=== PATIENT | male | born 1985 | race Asian ===

== ENCOUNTER 2018-12-15 23:34 | Emergency (ER) | payer BC ==
[~2018-12-15] VITALS: Ht 165.1 cm; Wt 63.5 kg
--- NOTE | 2018-12-16 00:19 | PHYS DOC ---
Past Medical History Past Medical History: No Pertinent History Past Surgical History: No Surgical History Alcohol Use: Occasionally Additional Information: PT. STATES HE DRINKS 2X A WEEK Drug Use: None Adult General Chief Complaint Chief Complaint: ALCOHOL INTOXICATION HPI HPI Patient is a 33 year old male who presents with head and left rib pain status post fall. Patient was drinking alcohol since 2:00 this afternoon and fell backwards and walking up the stairs this evening. He hit his head and left chest wall on the concrete denies any loss of consciousness. Currently experiencing left rib, left, and left posterior occipital pain. His experiencing some blurry vision of his left eye well as some dizziness. Denies any nausea, vomiting, lightheadedness, shortness of breath.[] Review of Systems Review of Systems Constitutional: Denies fever or chills [] Eyes: Reports left blurry vision, left eye pain.[] HENT: Denies nasal congestion or sore throat, reports left occipital pain [] Respiratory: Denies cough or shortness of breath [] Cardiovascular: Denies chest pain or palpitations[] GI: Denies abdominal pain, nausea, vomiting.[] : Denies dysuria or hematuria [] Musculoskeletal: Reports left-sided chest wall pain. Denies joint pain[] Integument: Denies rash or skin lesions [] Neurologic: Reports headache, no focal weakness or sensory changes [] Complete systems were reviewed and found to be within normal limits, except as documented in this note. Current Medications Current Medications Current Medications Medications (Trade) Dose Ordered Sig/Kesha Start Time Stop Time Status Last Admin Dose Admin Diphtheria/ Tetanus/Acell Pertussis (Boostrix) 0.5 ml ONCE ONCE 12/16/18 00:30 12/16/18 00:31 DC 12/16/18 00:21 0.5 ML Fluorescein Sodium (Ful-Delfina) 1 strip 1X ONCE 12/16/18 02:00 12/16/18 02:01 DC 12/16/18 01:45 1 STRIP Lidocaine/ Epinephrine (LIDOCAINE 2%-EPI 1:100,000 multi-dose) 20 ml 1X ONCE 12/16/18 00:30 12/16/18 00:31 DC 12/16/18 00:22 20 ML Neomycin/ Polymyxin/ Bacitracin (Triple Antibiotic Ointment) 1 pkt 1X ONCE 12/16/18 00:30 12/16/18 00:31 DC 12/16/18 00:22 1 PKT Tetracaine HCl (Tetracaine) 1 drop 1X ONCE 12/16/18 02:00 12/16/18 02:01 DC 12/16/18 01:45 1 DROP Allergies Allergies Allergies Coded Allergies Type Severity Reaction Last Updated Verified No Known Drug Allergies 12/15/18 No Physical Exam Physical Exam Constitutional: Well developed, well nourished, intoxicated. [] HENT: Normocephalic, 4 cm lack on left occipital region, TMs normal bilateral. [ ] Eyes: PERRLA, EOMI, injected left conjunctiva[] Neck: Normal range of motion, no tenderness, supple, no stridor. [] Cardiovascular:Heart rate regular rhythm, no murmur [] Lungs & Thorax: Bilateral breath sounds clear to auscultation, left chest wall pain with palpation [] Abdomen: Bowel sounds normal, soft, no tenderness, no rebound, rigidity or guarding. [] Skin: Warm, dry, no erythema, no rash. [] Back: No tenderness, no CVA tenderness. [] Extremities: No tenderness, no cyanosis, no clubbing, ROM intact, no edema. [] Neurologic: Alert and oriented X 3, no focal deficits noted. [] Psychologic: Affect normal, mood normal. [] Current Patient Data Vital Signs Vital Signs Date Time Temp Pulse Resp B/P (MAP) Pulse Ox O2 Delivery O2 Flow Rate FiO2 12/16/18 02:00 81 21 106/59 (75) 98 Room Air 12/15/18 23:43 98.4 98.4 EKG EKG [] Radiology/Procedures Radiology/Procedures PROCEDURE: CT HEAD AND CERVICAL SPINE WO CT Head W/O Contrast: History: etoh; pain to head/neck Comparison: none Axial images were obtained without contrast. The nunes and white matter appears normal and symmetrical for the patients age. There is no mass effect, extraaxial fluid collections or hydrocephalus. There is no gross bleed. There is no focal loss of nunes-white matter distinction to suggest acute ischemia, i.e. stroke. There is opacification of the frontal sinus and the ethmoid air cells and fluid and mucoperiosteal thickening in the right maxillary sinus and mildly depressed thickening inferiorly in the left maxillary sinus. There is some compressive thickening in the sphenoid sinus. Impression: Moderate pansinusitis. No acute intracranial findings. End impression CT C-Spine without contrast: Clinical History: etoh; pain to head/neck Technique: Axial helical images of the cervical spine were obtained without contrast, axial coronal and sagittal reconstruction was performed. Findings: There is no loss of vertebral body stature. There is no prevertebral soft tissue swelling. The vertebral bodies are well aligned. The C1-C2 relationship is normal. The visualized osseous structures appear normal. Impression: No acute findings. Clinical correlation suggested. PQRS Compliance Statement: One or more of the following individualized dose reduction techniques were utilized for this examination: 1. Automated exposure control 2. Adjustment of the mA and/or kV according to patient size 3. Use of iterative reconstruction technique Electronically signed by: Jorje López III, MD (12/16/2018 12:46 AM) [id number] PROCEDURE: CT CHEST WO CONTRAST CT of the chest without contrast: Clinical History: Ethanol pain anterior ribs on left status post fall. Axial helical images of the chest were obtained without contrast. There are few pulmonary nodules bilaterally largest on the right measures 6 mm. There is no mediastinal or hilar lymphadenopathy. Impression: Noncalcified pulmonary nodules. Recommend a 6-month-old CT chest without contrast. PQRS Compliance Statement: One or more of the following individualized dose reduction techniques were utilized for this examination: 1. Automated exposure control 2. Adjustment of the mA and/or kV according to patient size 3. Use of iterative reconstruction technique Electronically signed by: Jorje López III, MD (12/16/2018 12:54 AM) [facility] [place][] Course & Med Decision Making Course & Med Decision Making 33-year-old male presents to the ER status post fall. Patient was drinking this afternoon and fell down six steps and hit his head and chest wall on concrete. Patient does have a 4 cm laceration on his left occipital region. Pertinent Imaging studies reviewed. Fluids were initiated. Pain medicine provided with interval improvement. Had laceration repaired with mio. Patient stable for discharge with outpatient follow-up with PCP. Discussed findings and plan with patient and family, who acknowledge understanding and agreement.(See chart for details) [] Dragon Disclaimer Dragon Disclaimer This electronic medical record was generated, in whole or in part, using a voice recognition dictation system. Laceration/Wound Repair Laceration/Wound Repair : Wound Location: head (left occipital region) Wound's Depth, Shape: superficial Wound Explored: clean Betadine Prep?: No (ChloraPrep) Anesthesia: Lidocaine w/ Epi (2%) Volume Anesthetic (ccs): 6 Wound Debrided: minimal Wound Repaired With: sutures ([place]) Number of Sutures: 6 Layer Closure?: No Sterile Dressing Applied?: No Splint Applied?: No Sling Applied?: No Departure Departure Impression: Primary Impression: Laceration Additional Impressions: Alcohol intoxication Conjunctivitis Disposition: 01 HOME, SELF-CARE Condition: STABLE Patient Instructions: Alcohol Intoxication, [id number], Conjunctivitis ( Viral and Bacterial), Laceration Care, Adult, [id number] Scripts Erythromycin Base (Erythromycin) 1 Gm Oint...g. 0.5 INCH OP QID for 5 Days, MISC Prov: HECTOR WHITE DO 12/16/18 Problem Qualifiers Additional Impressions: Alcohol intoxication Complication of substance-induced condition: uncomplicated Qualified Codes: F10.920 - Alcohol use, unspecified with intoxication, uncomplicated Conjunctivitis Conjunctivitis type: acute Acute conjunctivitis type: unspecified Laterality: left Qualified Codes: H10.32 - Unspecified acute conjunctivitis, left eye HECTOR WHITE DO Dec 16, 2018 00:19
[2018-12-16] MEDS ORDERED: LIDOCAINE 2%/EPI 1:100,000 20 ML VIAL. IJ ONE (00:30)
[2018-12-16] MEDS ORDERED: DIPHTH,PERTUSS(ACELL),TET TOX 0.5 ML DISP.SYRIN. VAX IM ONE (00:30)
[2018-12-16] MEDS ORDERED: NEOMY/BACITR/POLYMYXIN OINT PACKET. TP ONE (00:30)
--- NOTE | 2018-12-16 00:49 | RAD ---
CT Head W/O Contrast: History: etoh; pain to head/neck Comparison: none Axial images were obtained without contrast. The nunes and white matter appears normal and symmetrical for the patients age. There is no mass effect, extraaxial fluid collections or hydrocephalus. There is no gross bleed. There is no focal loss of nunes-white matter distinction to suggest acute ischemia, i.e. stroke. There is opacification of the frontal sinus and the ethmoid air cells and fluid and mucoperiosteal thickening in the right maxillary sinus and mildly depressed thickening inferiorly in the left maxillary sinus. There is some compressive thickening in the sphenoid sinus. Impression: Moderate pansinusitis. No acute intracranial findings. End impression CT C-Spine without contrast: Clinical History: etoh; pain to head/neck Technique: Axial helical images of the cervical spine were obtained without contrast, axial coronal and sagittal reconstruction was performed. Findings: There is no loss of vertebral body stature. There is no prevertebral soft tissue swelling. The vertebral bodies are well aligned. The C1-C2 relationship is normal. The visualized osseous structures appear normal. Impression: No acute findings. Clinical correlation suggested. PQRS Compliance Statement: One or more of the following individualized dose reduction techniques were utilized for this examination: 1. Automated exposure control 2. Adjustment of the mA and/or kV according to patient size 3. Use of iterative reconstruction technique Electronically signed by: Jorje López III, MD (12/16/2018 12:46 AM) [id number]
--- NOTE | 2018-12-16 00:57 | RAD ---
CT of the chest without contrast: Clinical History: Ethanol pain anterior ribs on left status post fall. Axial helical images of the chest were obtained without contrast. There are few pulmonary nodules bilaterally largest on the right measures 6 mm. There is no mediastinal or hilar lymphadenopathy. Impression: Noncalcified pulmonary nodules. Recommend a 6-month-old CT chest without contrast. PQRS Compliance Statement: One or more of the following individualized dose reduction techniques were utilized for this examination: 1. Automated exposure control 2. Adjustment of the mA and/or kV according to patient size 3. Use of iterative reconstruction technique Electronically signed by: Jorje López III, MD (12/16/2018 12:54 AM) [id number]
[2018-12-16 02:00] VITALS: BP 106/59
[2018-12-16] MEDS ORDERED: FLUORESCEIN OPHTH TEST STRIP. OS ONE (02:00)
[2018-12-16] MEDS ORDERED: TETRACAINE 0.5% OPHTH SOLUTION 4ML BOTTLE. OS ONE (02:00)
[2018-12-16] MEDS ORDERED: ERYT1OIN6 OP (03:11)
[2018-12-16] MEDS ORDERED: ERYTHROMYCIN 0.5% OPHTH OINTMENT 1GM TUBE. OS ONE (03:30)
== END 2018-12-16 03:36 | disposition home or self-care (01) ==
LOC: ER 23:34
DX: S01.01XA Laceration without foreign body of scalp, initial encounter (principal); F10.129 Alcohol abuse with intoxication, unspecified; H10.9 Unspecified conjunctivitis; R07.81 Pleurodynia; W10.9XXA Fall (on) (from) unspecified stairs and steps, initial encounter; Y93.89 Activity, other specified; Y92.89 Other specified places as the place of occurrence of the external cause; Y99.8 Other external cause status; Y90.9 Presence of alcohol in blood, level not specified
CPT/HCPCS: 12002; 70450; 71250; 72125; 90471; 90715; 99284; J3490